=== PATIENT | female | born 1990 | race Caucasian/White ===

== ENCOUNTER → 2022-07-10 | Outpatient (CLI) | payer OTHER ==
[~2022-07-10] MED LIST: CEPH500 PO; IBUP200; LEVSOD150 PO; MULVITMINE PO; NORETHTP; PANT20 PO; SUMA25 PO; Toprol Xl25 MG PO
== END | disposition home or self-care (01) ==
LOC: LAB 12:40 → LAB SHORT 12:40
DX: N39.0 Urinary tract infection, site not specified (principal)
CPT/HCPCS: 87077; 87086; 87186

== ENCOUNTER → 2023-03-07 | Outpatient (CLI) | payer OTHER ==
[2023-03-07 18:48] LABS: Bun/Creatinine Ratio 17.8 (12.0-20.0); Calcium, Blood 9.2 mg/dL (8.5-10.1); Creatinine, Blood 0.51 mg/dL (0.40-1.00); Potassium, Blood 3.3 mmol/L (3.5-5.5)
== END ==
LOC: LAB SHORT 17:09 → LAB 17:09
PROVIDERS: Physician Assistant
DX: U07.1 COVID-19 (principal); R53.83 Other fatigue
CPT/HCPCS: 80048

== ENCOUNTER → 2024-02-19 | Outpatient (CLI) | payer OTHER | LOC: LAB 16:37 → LAB SHORT 16:37 | DX: R30.0 Dysuria (principal) | CPT/HCPCS: 87086 ==